=== PATIENT | male | born 1990 ===

== ENCOUNTER 2021-05-23 13:00 | Emergency (ER) | payer OTHER, SELFPAY ==
--- NOTE | 2021-05-23 15:28 | Emergency Department Report ---
HPI - General Chief Complaint: Psych Time Seen by Provider: 05/23/21 15:20 - HPI HPI: Room 12 The patient is a 22-year-old male present with a chief complaint of erratic behavior. The patient was reportedly sent to the ED by his mother via EMS for "mental health." The patient reportedly had an episode of "yelling out stating he was going to kill himself." The patient denies this. Patient denies suicidal or homicidal ideation. Patient denies auditory or visual hallucinations. ED Past Medical Hx - Past Medical History Hx Psychiatric Treatment: (schizophrenia) Additional medical history: Eczema - Surgical History Past Surgical History?: No - Family History Family history: no significant - Social History Smoking Status: Never Smoker Substance Use Type: None (Denies illicit drug use) ED Review of Systems ROS: Stated complaint: SUICIDAL IDEATIONS Other details as noted in HPI Constitutional: no symptoms reported Eyes: denies: eye pain ENT: denies: throat pain Respiratory: no symptoms reported Cardiovascular: denies: chest pain Endocrine: no symptoms reported Gastrointestinal: denies: abdominal pain Genitourinary: denies: dysuria Musculoskeletal: denies: back pain Neurological: denies: headache Psychiatric: denies: auditory hallucinations, visual hallucinations, homicidal thoughts, suicidal thoughts (Denies SI) Physical Exam - Physical Exam Physical Exam: GENERAL: The patient is well-developed well-nourished male sitting in chair not appearing to be in acute distress. [] HEENT: Normocephalic. Atraumatic. Extraocular motions are intact. Patient has moist mucous membranes. NECK: Supple. Trachea midline CHEST/LUNGS: There is no respiratory distress noted. HEART/CARDIOVASCULAR: Regular. There is no tachycardia. ABDOMEN: Abdomen is soft, nontender. Patient has normal bowel sounds. There is no abdominal distention. SKIN: There is no rash. There is no edema. There is no diaphoresis. NEURO: The patient is awake, alert, and oriented. The patient is cooperative. The patient has no focal neurologic deficits. The patient has normal speech. GCS 15 MUSCULOSKELETAL: There is no evidence of acute injury. ED Medical Decision Making - Lab Data Result diagrams: 05/23/21 15:19 05/23/21 15:19 Laboratory Tests 05/23/21 05/23/21 05/23/21 15:19 15:19 15:19 WBC RBC Hgb Hct MCV MCH MCHC RDW Plt Count Lymph % (Auto) [place] % (Auto) Eos % (Auto) Baso % (Auto) Lymph # (Auto) [place] # (Auto) Eos # (Auto) Baso # (Auto) Seg Neutrophils % Seg Neutrophils # Sodium 138 Potassium 3.7 Chloride 104.6 Carbon Dioxide 20 L Anion Gap 17 BUN 13 Creatinine 0.7 L Estimated GFR > 60 BUN/Creatinine Ratio 19 Glucose 84 Calcium 9.1 Urine Color Urine Turbidity Urine pH Ur Specific [place] Urine Protein Urine Glucose (UA) Urine Ketones Urine Blood Urine Nitrite Urine Bilirubin Urine Urobilinogen Ur Leukocyte Esterase Urine WBC (Auto) Urine RBC (Auto) Urine Mucus Salicylates < 0.3 L Urine Opiates Screen Urine Methadone Screen Acetaminophen 5.0 L Ur Barbiturates Screen Ur Phencyclidine Scrn Ur Amphetamines Screen U Benzodiazepines Scrn Urine Cocaine Screen U Marijuana (THC) Screen Drugs of Abuse Note Plasma/Serum Alcohol Coronavirus (PCR) 05/23/21 05/23/21 05/23/21 15:19 15:19 Unknown WBC 5.4 RBC 4.88 Hgb 15.1 Hct 45.3 MCV 93 MCH 31 MCHC 33 RDW 14.1 Plt Count 239 Lymph % (Auto) 23.0 [place] % (Auto) 9.2 H Eos % (Auto) 3.8 Baso % (Auto) 1.1 Lymph # (Auto) 1.2 [place] # (Auto) 0.5 Eos # (Auto) 0.2 Baso # (Auto) 0.1 Seg Neutrophils % 62.9 Seg Neutrophils # 3.4 Sodium Potassium Chloride Carbon Dioxide Anion Gap BUN Creatinine Estimated GFR BUN/Creatinine Ratio Glucose Calcium Urine Color Yellow Urine Turbidity Clear Urine pH 5.0 Ur Specific [place] 1.031 H Urine Protein 30 mg/dl Urine Glucose (UA) Neg Urine Ketones 80 Urine Blood Neg Urine Nitrite Neg Urine Bilirubin Neg Urine Urobilinogen 2.0 Ur Leukocyte Esterase Neg Urine WBC (Auto) 1.0 Urine RBC (Auto) < 1.0 Urine Mucus 3+ Salicylates Urine Opiates Screen Urine Methadone Screen Acetaminophen Ur Barbiturates Screen Ur Phencyclidine Scrn Ur Amphetamines Screen U Benzodiazepines Scrn Urine Cocaine Screen U Marijuana (THC) Screen Drugs of Abuse Note Plasma/Serum Alcohol < 0.01 Coronavirus (PCR) 07/16/21 07/17/21 Unknown Unknown WBC RBC Hgb Hct MCV MCH MCHC RDW Plt Count Lymph % (Auto) [place] % (Auto) Eos % (Auto) Baso % (Auto) Lymph # (Auto) [place] # (Auto) Eos # (Auto) Baso # (Auto) Seg Neutrophils % Seg Neutrophils # Sodium Potassium Chloride Carbon Dioxide Anion Gap BUN Creatinine Estimated GFR BUN/Creatinine Ratio Glucose Calcium Urine Color Urine Turbidity Urine pH Ur Specific [place] Urine Protein Urine Glucose (UA) Urine Ketones Urine Blood Urine Nitrite Urine Bilirubin Urine Urobilinogen Ur Leukocyte Esterase Urine WBC (Auto) Urine RBC (Auto) Urine Mucus Salicylates Urine Opiates Screen Negative Urine Methadone Screen Negative Acetaminophen Ur Barbiturates Screen Negative Ur Phencyclidine Scrn Negative Ur Amphetamines Screen Negative U Benzodiazepines Scrn Negative Urine Cocaine Screen Negative U Marijuana (THC) Screen Positive Drugs of Abuse Note Disclamer Plasma/Serum Alcohol Coronavirus (PCR) Negative - Differential Diagnosis Schizophrenia, adjustment disorder, anxiety Critical care attestation.: If time is entered above; I have spent that time in minutes in the direct care of this critically ill patient, excluding procedure time. ED Disposition Clinical Impression: Schizophrenia, Eczema Disposition: [id number]/TX-[id number] PSY HOSP/PSY UNIT Is pt being admited?: No Does the pt Need Aspirin: No Condition: Stable Referrals: PRIMARY CARE [Primary Care Provider] - 3-5 Days Forms: AMA Form
[2021-05-23 15:58] LABS: Basophils # (Auto) 0.1 K/mm3 (0.0-0.1); Basophils % (Auto) 1.1 % (0.0-1.8); Eosinophils # (Auto) 0.2 K/mm3 (0.0-0.4); Eosinophils % (Auto) 3.8 % (0.0-4.3); Hematocrit 45.3 % (35.5-45.6); Hemoglobin 15.1 gm/dl (11.8-15.2); Lymphocytes # (Auto) 1.2 K/mm3 (1.2-5.4); Mean Corpuscular HGB Conc 33 % (32-34); Mean Corpuscular Volume 93 fl (84-94); Monocytes # (Auto) 0.5 K/mm3 (0.0-0.8); Monocytes % (Auto) 9.2 % (0.0-7.3); Platelet Count 239 K/mm3 (140-440); Red Blood Count 4.88 M/mm3 (3.65-5.03); Red Cell Distribution Width 14.1 % (13.2-15.2)
[2021-05-23 16:11] LABS: Blood Urea Nitrogen 13 mg/dL (9-20); Calcium 9.1 mg/dL (8.4-10.2); Hemolysis Index 8
[2021-05-23 16:15] LABS: BUN/Creatinine Ratio 19
[2021-05-23 21:08] LABS: Bilirubin,Urine NEG (Negative); Blood,Urine NEG (Negative); Color,Urine Yellow (Yellow); Mucus,Urine 3+ /HPF; RBC,Urine < 1.0 /HPF (0.0-6.0)
[2021-05-23 21:17] LABS: Amphetamine Screen,Urine Negative; Benzodiazepines Screen,Urine Negative; Cocaine Screen,Urine Negative; Methadone Screen,Urine Negative; Opiate Screen,Urine Negative
[2021-05-23 21:29] LABS: Cannabinoid Screen,Urine Positive
--- NOTE | 2021-05-24 10:36 | Event Note ---
Date: 05/24/21 S: Patient complain of eczema overnight O: Vital Signs - 24 hr 05/23/21 05/23/21 05/24/21 16:46 20:15 09:42 Temperature 98.0 F 97.9 F 98.3 F Pulse Rate 89 63 69 Respiratory 18 18 18 Rate Blood Pressure 141/91 133/77 133/76 [Right] O2 Sat by Pulse 100 100 99 Oximetry A: Suicidal ideation, homicidal ideation P: 1013, awaiting placement
[2021-05-24] MEDS ORDERED: HYDROCORTISONE 1% CREAM 28.4GM TP SCH (11:00)
--- NOTE | 2021-05-24 11:11 | Consultation ---
History of Present Illness - Reason for Consult Consult date: 05/24/21 Reason for consult: mental health eval - History of Present Psychiatric Illness Per ER Note: The patient is a 22-year-old male present with a chief complaint of erratic behavior. The patient was reportedly sent to the ED by his mother via EMS for "mental health." The patient reportedly had an episode of "yelling out stating he was going to kill himself." The patient denies this. Patient denies suicidal or homicidal ideation. Patient denies auditory or visual hallucinations. Imtiaz Patrick is a 30y/o male patient who was brought to the ER for mental health evaluation. He says he wanted to come to have his skin checked out due to his eczema. He says he thinks his mom got worried about maybe the way he was acting. The patient denies any SI/HI. When asked why did he think his mom thought that, the patient says "I don't know. But I don't want to hurt myself or anybody." He shows me his eczema. He says this my only problem. He denies any psych history. The patient says "no bipolar or schizophrenia or none of that." He also denies being on any psych meds. He denies any illicit drug use, alcohol or nicotine. The sitter caring for the patient states he has been calm, cooperative and without any behavioral episodes. He says he has not observed the patient hallucinating or any signs of thoughts of self harm. PAST PSYCHIATRIC HISTORY Diagnoses: Denies Suicide attempts or Self-harm behavior: Denies Prior psychiatric hospitalizations: Denies Substance Abuse history: Denies Previous psychiatric medications tried: Denies Outpatient treatment: No PAST MEDICAL HISTORY: None reported Family Psychiatric History: None reported or documented SOCIAL HISTORY Marital Status: single Living Arrangements: with mother Employment Status: Unemployed Access to guns/weapons: Denies Education: high school History of Abuse: Denies Legal History: Denies REVIEW OF SYSTEMS Constitutional: Negative for weight loss ENT: Negative for stridor Respiratory: Negative for cough or hemoptysis All other systems reviewed and are negative MENTAL STATUS EXAMINATION General Appearance and Behavior: Age appropriate, good hygiene, wearing appropriate clothes, good eye contact, calm and cooperative Cooperation: Participating/engaged Psychomotor Behavior: Psychomotor normal Mood: "I feel good" Affect and affective range: Congruent with stated mood Thought Process: goal directed Thought Content: None Speech: normal tone and pace Suicidal Ideation: Denies Homicidal Ideation: Denies Hallucinations: Denies Delusions: None elicited Impulse Control: Limited Insight and Judgment: Limited insight and judgment Memory: Limited Attention: Attentive Orientation: Alert, oriented Assessment and Plan (1) Treatment Plan d/c 1013 Sitter: Per primary Medical: Per primary Disposition: Do not recommend acute psychiatric inpatient. The patient unders tands that if suicidal thoughts or any fear of endangerment arise he is to seek immediate assistance. Child And Family Therapist to further discuss and document safety plan The patient to follow up with outpatient psych 7 to 14 days upon discharge Will sign off Case staffed with Dr. Gregory Medications and Allergies Allergies Allergy/AdvReac Type Severity Reaction Status Date / Time No Known Allergies Allergy Unverified 05/23/21 14:59 Active Meds: Active Medications Hydrocortisone Acetate (Hydrocortisone 1% Cream 28.4gm) 1 applic TP BID SANDY Mental Status Exam - Vital signs Last Vital Signs Temp 98.3 F 05/24/21 09:42 Pulse 69 05/24/21 09:42 Resp 18 05/24/21 09:42 BP 133/76 05/24/21 09:42 Pulse Ox 99 05/24/21 09:42 Results Result Diagrams: 05/23/21 15:19 05/23/21 15:19 Abnormal lab results 05/23/21 05/23/21 05/23/21 Range/Units 15:19 15:19 15:19 [place] % (Auto) (0.0-7.3) % Carbon Dioxide 20 L (22-30) mmol/L Creatinine 0.7 L (0.8-1.3) mg/dL Ur Specific [place] (1.003-1.030) Salicylates < 0.3 L (2.8-20.0) mg/dL Acetaminophen 5.0 L (10.0-30.0) ug/mL 05/23/21 05/23/21 Range/Units 15:19 Unknown [place] % (Auto) 9.2 H (0.0-7.3) % Carbon Dioxide (22-30) mmol/L Creatinine (0.8-1.3) mg/dL Ur Specific [place] 1.031 H (1.003-1.030) Salicylates (2.8-20.0) mg/dL Acetaminophen (10.0-30.0) ug/mL All other labs normal.
[2021-05-24 20:07] VITALS: BP 104/68
== END 2021-05-24 23:39 ==
LOC: ED 13:00
DX: F20.9 Schizophrenia, unspecified (principal); L30.9 Dermatitis, unspecified; Z20.822 Contact with and (suspected) exposure to COVID-19; Z79.899 Other long term (current) drug therapy
CPT/HCPCS: 36415; 80048; 80307; 81001; 85025; 99285; A6250; U0003; 80320; G0480